=== PATIENT | female | born 1935 | race Caucasian/White ===

== ENCOUNTER 2023-05-25 22:54 | Inpatient (IN) ==
[2023-05-25 23:27] LABS: iSTAT Creatinine 0.7 mg/dl (0.6-1.3); iSTAT Hemoglobin 12.2 g/dl (12.0-16.0); iSTAT Ionized Calcium 1.09 mmol/l (1.12-1.32); iSTAT Potassium 4.1 mmol/L (3.3-5.0)
[2023-05-25 23:43] LABS: iSTAT Arterial Blood Gas HCO3 29 meg/L (19-24); iSTAT Arterial Blood Gas pCO2 56 mmHg (35-46); iSTAT Arterial Blood Gas pH 7.32 (7.35-7.45); iSTAT Arterial Blood Gas pO2 84 mmHg (80-95); iSTAT Carbon Dioxide 31 mmol/L (24-31); iSTAT Hematocrit 34 % (37-47); iSTAT Hemoglobin 11.6 g/dl (12.0-16.0); iSTAT Potassium 4.1 mmol/L (3.3-5.0); iSTAT Sodium 134 mmol/L (135-144)
--- NOTE | 2023-05-25 23:51 | Emergency Department Note ---
Impression & Plan Acute exacerbation of chronic obstructive pulmonary disease, Acute alteration in mental status, [facility] NAME: BOYD APONTE AGE: 87 SEX: F ARRIVES VIA: Ambulance INFORMANT: Patient's daughter and EMS ED PROVIDER(S): Susanna Cabrera DO CHIEF COMPLAINT: Shortness of breath and confusion PLAN: Disposition: Admit to the [facility] Condition: Guarded MEDICAL DECISION MAKING: This is an 87-year-old female patient with a history of COPD who presents to the emergency department with increasing shortness of breath and confusion. According to the patient's family, she has had increasing shortness of breath over the past 3 days. This is typical for her decline(exacerbation) of her COPD. They became more concerned tonight when she was becoming more confused and her O2 saturations were dropping. Patient does take prednisone on a daily basis and normally wears 2 L of O2 by nasal cannula. EMS found the patient h ypoxic on her usual home oxygen. Upon arrival here in the emergency department, she appeared to be in moderate respiratory distress. She was placed on BiPAP. She is tolerating that well at this time. Laboratory studies revealed significant leukocytosis with a white blood cell count of 20.9. A septic protocol was performed. Chest x-ray was concerning for an infiltrate in the right lower lung. Patient was treated with IV Levaquin as she has significant allergies in the past to cephalosporins. Other laboratory studies revealed a stable H&H and glucose of 257. BNP of 138. ABG revealed a pH of 7.32 PCO2 of 56 PO2 of 84 and bicarb of 29. This was consistent with a mild respiratory acidosis. There was slight hypercapnia. Triage Nursing notes reviewed and agree with them. Additional history obtained from the patient's daughter and son-in-law who are at the bedside Vital Signs: reviewed and remarkable for hypoxia and tachycardia Differential diagnosis: COPD exacerbation, congestive heart failure, pneumonia ER treatment provided: Cardiac monitoring Supplemental oxygen BiPAP Twelve-lead EKG IV Levaquin IV Solu-Medrol Diagnostics interpreted by me: ECG: Sinus tachycardia at a rate of 116 with first-degree AV block. There are no previous EKGs for comparison Cardiac Monitoring: Normal sinus rhythm at a rate of 97 Laboratory studies: See below Imaging studies: As per my independent interpretation Portable chest x-ray: Mild pulmonary vascular congestion with opacity in the right lung base HPI: 87/F arrives for evaluation of shortness of breath. Family notes over the past 3 days the patient has had increasing shortness of breath and confusion. This is not unusual for the patient with her exacerbations of COPD. She does have end-stage COPD. The patient normally wears 2 L of O2 by nasal cannula. As the evening wore on, they noted her O2 saturations were dropping to the point of 88%. PAST MEDICAL HISTORY:Dtl-[id number] diabetes, hypercholesterolemia, end- stage COPD, trigeminal neuralgia, osteoporosis PAST SURGICAL HISTORY:Bilateral hip replacements, trigeminal decompression, lumbar spine surgery SOCIAL HISTORY:Patient lives with her daughter and son-in-law HOME MEDICATIONS:See list ALLERGIES:See Below VITALS:See Below PHYSICAL EXAMINATION: HEENT: Head - normocephalic and atraumatic. Pupils are equal, round, and reactive to light. Extraocular eye muscles are intact, and sclera are anicteric. Nose - moist nasal mucosa without discharge. Mouth - moist buccal mucosa. Oropharynx is nonerythematous and there is no tonsillar exudate or ed kamilah noted. Neck: Supple; no JVD or cervical lymphadenopathy appreciated. Heart: Tachycardic rate and regular rhythm there is a normal S1 and S2 with no murmurs, clicks, or gallops appreciated. Lungs: Diminished breath sounds in all lung hoffman with no wheezes noted. Abdomen: Soft, completely nontender, nondistended, with good bowel sounds. There are no palpable pulsatile masses or hepatosplenomegaly. There is no guarding, rigidity, or rebound noted. Extremities: No evidence of cyanosis, clubbing, or edema. There are easily palpable peripheral pulses. Skin: warm and dry with good turgor and no rashes. Neuro: Patient is awake but slightly lethargic. She will follow commands but does not quickly answer questions. She does seem confused. She is moving all 4 extremities. There are no specific focal findings. ED COURSE: Times/Reassessments: 2310 patient was evaluated in room B3. A complete history and physical was performed. The patient was placed on BiPAP when she arrived here in the emergency department which has kept her O2 saturations stable. A portable chest x-ray was performed. Laboratory studies were drawn as above. An order was placed for continuous cardiac monitoring. The patient was in a normal sinus rhythm at a rate of 97. Patient was given a dose of IV Solu-Medrol. There was concern on the x-ray of an opacity in the right lung base. The patient was given a dose of IV Levaquin. I discussed the case with the [facility] Hospitalist and they will evaluate for further management. Susanna Cabrera DO Past Med/Surg History Social History Smoking Status: Former smoker Do You Dip or Chew Tobacco: No; Hx Alcohol Use: No Hx Substance Use: No Preferred Language: Amharic Communication Ability: Unable Rf Test Engineer Required: No Beliefs That Will Affect Care: None Current Living Situation: Family Feels Safe at Home: Yes Assistive Devices: None Allergies Allergies Allergy/AdvReac Type Severity Reaction Status Date / Time cefuroxime [From Ceftin] Allergy Hives Verified 05/26/23 00:54 Home Meds Home Medications Medication Instructions Recorded Confirmed albuterol sulfate 2.5 mg/3 mL 2.5 mg inhalation Q4H PRN 05/26/23 05/26/23 (0.083 %) solution for nebulization Shortness Of Breath Or Wheezing amlodipine 10 mg tablet 10 mg PO QAM 05/26/23 05/26/23 cholecalciferol (vitamin D3) 25 25 mcg PO QAM 05/26/23 05/26/23 mcg (1,000 unit) tablet (Vitamin D3) clopidogrel 75 mg tablet 75 mg PO HS 05/26/23 05/26/23 fentanyl 12 mcg/hr transdermal 12 mcg transdermal [id number] 05/26/23 05/26/23 patch metformin 500 mg tablet 500 mg PO BID 05/26/23 05/26/23 oxcarbazepine 150 mg tablet 300 mg PO BID 05/26/23 05/26/23 prednisone 5 mg tablet 5 mg PO QAM 05/26/23 05/26/23 Results & Data (ED) Vital Signs Vital Signs - 24 hr 05/25/23 23:07 05/25/23 23:43 05/25/23 23:01 Temperature 37.1 C Temperature Source Axillary Pulse Rate 116 H 115 H 124 H Pulse Rate [Apical] Respiratory Rate 35 H 30 H Respiratory Effort / Characteristics Accessory Muscle Use Short of Breath Respiratory Depth Deep Respiratory Pattern Tachypnea Blood Pressure 141/105 H Blood Pressure [Left Arm] Blood Pressure Mean 117 Blood Pressure Mean [Left Arm] Pulse Oximetry 98 99 Oxygen Delivery Method Non-rebreather Oxygen Flow Rate 15 Fraction of Inspired Oxygen 30 Sepsis Recent Fever Within 48 Hours No Sepsis New/Unexplained Change in Mental Status No Sepsis Action Taken by Nursing No Action Required Oxygen Flow Rate - Titration Pulse Oximetry Post Tiitration 05/26/23 00:28 05/26/23 00:30 05/25/23 23:00 Temperature Temperature Source Pulse Rate Pulse Rate [Apical] 102 H Respiratory Rate 20 Respiratory Effort / Characteristics Respiratory Depth Respiratory Pattern Blood Pressure Blood Pressure [Left Arm] 145/67 H Blood Pressure Mean Blood Pressure Mean [Left Arm] 93 Pulse Oximetry 97 66 L Oxygen Delivery Method BiPAP BiPAP Non-rebreather Oxygen Flow Rate 0 Fraction of Inspired Oxygen Sepsis Recent Fever Within 48 Hours Sepsis New/Unexplained Change in Mental Status Sepsis Action Taken by Nursing Oxygen Flow Rate - Titration 15 Pulse Oximetry Post Tiitration 99 05/26/23 00:53 05/26/23 01:00 05/26/23 02:01 Temperature Temperature Source Pulse Rate 96 H 84 Pulse Rate [Apical] 97 H Respiratory Rate 20 20 26 H Respiratory Effort / Characteristics Spontaneous Accessory Muscle Use Respiratory Depth Respiratory Pattern Blood Pressure Blood Pressure [Left Arm] 137/73 Blood Pressure Mean Blood Pressure Mean [Left Arm] 94 Pulse Oximetry 96 96 95 Oxygen Delivery Method BiPAP BiPAP Oxygen Flow Rate Fraction of Inspired Oxygen 25 Sepsis Recent Fever Within 48 Hours Sepsis New/Unexplained Change in Mental Status Sepsis Action Taken by Nursing Oxygen Flow Rate - Titration Pulse Oximetry Post Tiitration 05/26/23 03:14 05/26/23 03:00 05/26/23 01:21 Temperature Temperature Source Pulse Rate 69 Pulse Rate [Apical] 80 Respiratory Rate 16 Respiratory Effort / Characteristics Short of Breath Respiratory Depth Respiratory Pattern Blood Pressure Blood Pressure [Left Arm] 128/72 Blood Pressure Mean Blood Pressure Mean [Left Arm] 90 Pulse Oximetry 96 Oxygen Delivery Method BiPAP BiPAP Oxygen Flow Rate Fraction of Inspired Oxygen Sepsis Recent Fever Within 48 Hours Sepsis New/Unexplained Change in Mental Status Sepsis Action Taken by Nursing Oxygen Flow Rate - Titration Pulse Oximetry Post Tiitration Laboratory Data 05/25/23 23:09 05/25/23 23:09 Lab Results 05/25/23 05/25/23 05/25/23 Range/Units 23:09 23:09 23:09 WBC 20.95 H (4.8-10.8) K/ul RBC 4.02 L (4.20-5.40) M/uL Hgb 11.7 L (12.0-16.0) g/dl POC Hgb (12.0-16.0) g/dl Hct 37.5 (37.0-47.0) % POC Hct (37-47) % MCV 93.3 (80.0-100.0) fL MCH 29.1 (25.0-34.0) pg MCHC 31.2 L (32.0-36.0) g/dL RDW Std Deviation 50.6 H (36.4-46.3) fL RDW Coeff of Bernarda 14.8 H (11.5-14.5) % Plt Count 284 (130-400) K/uL MPV 10.8 (9.4-12.4) fL Immature Gran % (Auto) 0.5 % Neut % (Auto) 73.9 % Lymph % (Auto) 15.7 % Terry % (Auto) 9.6 % Eos % (Auto) 0.0 % Baso % (Auto) 0.3 % Neut # (Auto) 15.48 H (1.40-6.50) K/uL Lymph # (Auto) 3.29 (1.2-3.4) K/uL Terry # (Auto) 2.01 H (0.11-0.59) K/uL Eos # (Auto) 0.01 (0-0.50) K/uL Baso # (Auto) 0.06 (0-0.2) K/uL Immature Gran # (Auto) 0.10 (0.01-0.20) K/uL POC pH (7.35-7.45) POC pCO2 (35-46) mmHg POC pO2 (80-95) mmHg POC HCO3 (19-24) nisreen/L POC Base Excess (-9-1.8) nisreen/L POC ABG O2 Sat (90-95) % POC Sodium (135-144) mmol/L Sodium 135 L (136-145) mmol/L POC Potassium (3.3-5.0) mmol/L Potassium 4.0 (3.5-5.1) mmol/L POC Chloride (101-112) mmol/L Chloride 99 (98-107) mmol/L Carbon Dioxide 29 (21-32) mmol/L POC Total CO2 (24-31) mmol/L Anion Gap 7 (3-11) POC Anion Gap (16-25) mmol/L POC BUN (7-18) mg/dl BUN 26 H (6-23) mg/dl Creatinine 0.78 (0.6-1.2) mg/dl POC Creatinine (0.6-1.3) mg/dl Est Cr Clr Drug Dosing Not Reportable Est GFR ( Amer) 80.3 ml/min Est GFR (Non-Af Amer) 69.3 ml/min BUN/Creatinine Ratio 33.3 H (10-20) Glucose 257 H (70-99(Fasting)) mg/dl POC Glucose (other) (70-99) mg/dl Lactate (0.4-2.0) mmol/L Calcium 9.9 (8.6-10.3) mg/dl POC Ioniz Calcium Zuleima (1.12-1.32) mmol/l Total Bilirubin 0.7 (0.2-1.0) mg/dl AST 22 (13-39) U/L ALT 29 (7-52) U/L Alkaline Phosphatase 136 H (34-104) U/L Troponin I High Sens 29.0 H (0-14) pg/ml B-Natriuretic Peptide 138 H (0-100) pg/ml Total Protein 7.3 (6.0-8.3) gm/dl Albumin 4.1 (3.4-5.0) gm/dl Globulin 3.2 (2.5-4.0) gm/dl Albumin/Globulin Ratio 1.3 (0.9-2) Procalcitonin (0-0.5) ng/ml Urine Color Urine Appearance (Clear) Urine pH (4.5-7.5) Ur Specific Tomball (1.000-1.030) Urine Protein (Negative) Urine Glucose (UA) (Negative) Urine Ketones (Negative) Urine Blood (Negative) Urine Nitrite (Negative) Urine Bilirubin (Negative) Urine Urobilinogen (Negative) Ur Leukocyte Esterase (Negative) Urine WBC (Auto) (0-5) /hpf Urine RBC (Auto) (0-4) /hpf U Hyaline Cast (Auto) (0-5) /lpf U Epithel Cells (Auto) (0-5) /lpf Urine Bacteria (Auto) (Negative) Urine Yeast SARS-CoV-2, RNA, NAAT (NEGATIVE) 05/25/23 05/25/23 05/25/23 Range/Units 23:09 23:14 23:28 WBC (4.8-10.8) K/ul RBC (4.20-5.40) M/uL Hgb (12.0-16.0) g/dl POC Hgb 12.2 11.6 L (12.0-16.0) g/dl Hct (37.0-47.0) % POC Hct 36 L 34 L (37-47) % MCV (80.0-100.0) fL MCH (25.0-34.0) pg MCHC (32.0-36.0) g/dL RDW Std Deviation (36.4-46.3) fL RDW Coeff of Bernarda (11.5-14.5) % Plt Count (130-400) K/uL MPV (9.4-12.4) fL Immature Gran % (Auto) % Neut % (Auto) % Lymph % (Auto) % Terry % (Auto) % Eos % (Auto) % Baso % (Auto) % Neut # (Auto) (1.40-6.50) K/uL Lymph # (Auto) (1.2-3.4) K/uL Terry # (Auto) (0.11-0.59) K/uL Eos # (Auto) (0-0.50) K/uL Baso # (Auto) (0-0.2) K/uL Immature Gran # (Auto) (0.01-0.20) K/uL POC pH 7.32 L (7.35-7.45) POC pCO2 56 H (35-46) mmHg POC pO2 84 (80-95) mmHg POC HCO3 29 H (19-24) nisreen/L POC Base Excess 3.0 H (-9-1.8) nisreen/L POC ABG O2 Sat 95.0 (90-95) % POC Sodium 134 L 134 L (135-144) mmol/L Sodium (136-145) mmol/L POC Potassium 4.1 4.1 (3.3-5.0) mmol/L Potassium (3.5-5.1) mmol/L POC Chloride 100 L (101-112) mmol/L Chloride (98-107) mmol/L Carbon Dioxide (21-32) mmol/L POC Total CO2 29 31 (24-31) mmol/L Anion Gap (3-11) POC Anion Gap 10.0 L (16-25) mmol/L POC BUN 26 H (7-18) mg/dl BUN (6-23) mg/dl Creatinine (0.6-1.2) mg/dl POC Creatinine 0.7 (0.6-1.3) mg/dl Est Cr Clr Drug Dosing Est GFR ( Amer) ml/min Est GFR (Non-Af Amer) ml/min BUN/Creatinine Ratio (10-20) Glucose (70-99(Fasting)) mg/dl POC Glucose (other) 263 H (70-99) mg/dl Lactate (0.4-2.0) mmol/L Calcium (8.6-10.3) mg/dl POC Ioniz Calcium Zuleima 1.09 L (1.12-1.32) mmol/l Total Bilirubin (0.2-1.0) mg/dl AST (13-39) U/L ALT (7-52) U/L Alkaline Phosphatase (34-104) U/L Troponin I High Sens (0-14) pg/ml B-Natriuretic Peptide (0-100) pg/ml Total Protein (6.0-8.3) gm/dl Albumin (3.4-5.0) gm/dl Globulin (2.5-4.0) gm/dl Albumin/Globulin Ratio (0.9-2) Procalcitonin 0.16 (0-0.5) ng/ml Urine Color Urine Appearance (Clear) Urine pH (4.5-7.5) Ur Specific Tomball (1.000-1.030) Urine Protein (Negative) Urine Glucose (UA) (Negative) Urine Ketones (Negative) Urine Blood (Negative) Urine Nitrite (Negative) Urine Bilirubin (Negative) Urine Urobilinogen (Negative) Ur Leukocyte Esterase (Negative) Urine WBC (Auto) (0-5) /hpf Urine RBC (Auto) (0-4) /hpf U Hyaline Cast (Auto) (0-5) /lpf U Epithel Cells (Auto) (0-5) /lpf Urine Bacteria (Auto) (Negative) Urine Yeast SARS-CoV-2, RNA, NAAT (NEGATIVE) 05/26/23 05/26/23 05/26/23 Range/Units 00:57 01:00 01:00 WBC (4.8-10.8) K/ul RBC (4.20-5.40) M/uL Hgb (12.0-16.0) g/dl POC Hgb (12.0-16.0) g/dl Hct (37.0-47.0) % POC Hct (37-47) % MCV (80.0-100.0) fL MCH (25.0-34.0) pg MCHC (32.0-36.0) g/dL RDW Std Deviation (36.4-46.3) fL RDW Coeff of Bernarda (11.5-14.5) % Plt Count (130-400) K/uL MPV (9.4-12.4) fL Immature Gran % (Auto) % Neut % (Auto) % Lymph % (Auto) % Terry % (Auto) % Eos % (Auto) % Baso % (Auto) % Neut # (Auto) (1.40-6.50) K/uL Lymph # (Auto) (1.2-3.4) K/uL Terry # (Auto) (0.11-0.59) K/uL Eos # (Auto) (0-0.50) K/uL Baso # (Auto) (0-0.2) K/uL Immature Gran # (Auto) (0.01-0.20) K/uL POC pH (7.35-7.45) POC pCO2 (35-46) mmHg POC pO2 (80-95) mmHg POC HCO3 (19-24) nisreen/L POC Base Excess (-9-1.8) nisreen/L POC ABG O2 Sat (90-95) % POC Sodium (135-144) mmol/L Sodium (136-145) mmol/L POC Potassium (3.3-5.0) mmol/L Potassium (3.5-5.1) mmol/L POC Chloride (101-112) mmol/L Chloride (98-107) mmol/L Carbon Dioxide (21-32) mmol/L POC Total CO2 (24-31) mmol/L Anion Gap (3-11) POC Anion Gap (16-25) mmol/L POC BUN (7-18) mg/dl BUN (6-23) mg/dl Creatinine (0.6-1.2) mg/dl POC Creatinine (0.6-1.3) mg/dl Est Cr Clr Drug Dosing Est GFR ( Amer) ml/min Est GFR (Non-Af Amer) ml/min BUN/Creatinine Ratio (10-20) Glucose (70-99(Fasting)) mg/dl POC Glucose (other) (70-99) mg/dl Lactate 1.4 (0.4-2.0) mmol/L Calcium (8.6-10.3) mg/dl POC Ioniz Calcium Zuleima (1.12-1.32) mmol/l Total Bilirubin (0.2-1.0) mg/dl AST (13-39) U/L ALT (7-52) U/L Alkaline Phosphatase (34-104) U/L Troponin I High Sens (0-14) pg/ml B-Natriuretic Peptide (0-100) pg/ml Total Protein (6.0-8.3) gm/dl Albumin (3.4-5.0) gm/dl Globulin (2.5-4.0) gm/dl Albumin/Globulin Ratio (0.9-2) Procalcitonin (0-0.5) ng/ml Urine Color Yellow Urine Appearance Cloudy A (Clear) Urine pH 5.5 (4.5-7.5) Ur Specific Tomball 1.022 (1.000-1.030) Urine Protein 2+ H (Negative) Urine Glucose (UA) 1+ H (Negative) Urine Ketones Negative (Negative) Urine Blood Negative (Negative) Urine Nitrite Negative (Negative) Urine Bilirubin Negative (Negative) Urine Urobilinogen Negative (Negative) Ur Leukocyte Esterase Negative (Negative) Urine WBC (Auto) 1-5 (0-5) /hpf Urine RBC (Auto) 0-4 (0-4) /hpf U Hyaline Cast (Auto) 1-5 (0-5) /lpf U Epithel Cells (Auto) 20-30 H (0-5) /lpf Urine Bacteria (Auto) Negative (Negative) Urine Yeast Not Reportable SARS-CoV-2, RNA, NAAT NEGATIVE (NEGATIVE) 05/26/23 Range/Units 03:10 WBC (4.8-10.8) K/ul RBC (4.20-5.40) M/uL Hgb (12.0-16.0) g/dl POC Hgb (12.0-16.0) g/dl Hct (37.0-47.0) % POC Hct (37-47) % MCV (80.0-100.0) fL MCH (25.0-34.0) pg MCHC (32.0-36.0) g/dL RDW Std Deviation (36.4-46.3) fL RDW Coeff of Bernarda (11.5-14.5) % Plt Count (130-400) K/uL MPV (9.4-12.4) fL Immature Gran % (Auto) % Neut % (Auto) % Lymph % (Auto) % Terry % (Auto) % Eos % (Auto) % Baso % (Auto) % Neut # (Auto) (1.40-6.50) K/uL Lymph # (Auto) (1.2-3.4) K/uL Terry # (Auto) (0.11-0.59) K/uL Eos # (Auto) (0-0.50) K/uL Baso # (Auto) (0-0.2) K/uL Immature Gran # (Auto) (0.01-0.20) K/uL POC pH (7.35-7.45) POC pCO2 (35-46) mmHg POC pO2 (80-95) mmHg POC HCO3 (19-24) nisreen/L POC Base Excess (-9-1.8) nisreen/L POC ABG O2 Sat (90-95) % POC Sodium (135-144) mmol/L Sodium (136-145) mmol/L POC Potassium (3.3-5.0) mmol/L Potassium (3.5-5.1) mmol/L POC Chloride (101-112) mmol/L Chloride (98-107) mmol/L Carbon Dioxide (21-32) mmol/L POC Total CO2 (24-31) mmol/L Anion Gap (3-11) POC Anion Gap (16-25) mmol/L POC BUN (7-18) mg/dl BUN (6-23) mg/dl Creatinine (0.6-1.2) mg/dl POC Creatinine (0.6-1.3) mg/dl Est Cr Clr Drug Dosing Est GFR ( Amer) ml/min Est GFR (Non-Af Amer) ml/min BUN/Creatinine Ratio (10-20) Glucose (70-99(Fasting)) mg/dl POC Glucose (other) (70-99) mg/dl Lactate (0.4-2.0) mmol/L Calcium (8.6-10.3) mg/dl POC Ioniz Calcium Zuleima (1.12-1.32) mmol/l Total Bilirubin (0.2-1.0) mg/dl AST (13-39) U/L ALT (7-52) U/L Alkaline Phosphatase (34-104) U/L Troponin I High Sens 41.0 H D (0-14) pg/ml B-Natriuretic Peptide (0-100) pg/ml Total Protein (6.0-8.3) gm/dl Albumin (3.4-5.0) gm/dl Globulin (2.5-4.0) gm/dl Albumin/Globulin Ratio (0.9-2) Procalcitonin (0-0.5) ng/ml Urine Color Urine Appearance (Clear) Urine pH (4.5-7.5) Ur Specific Tomball (1.000-1.030) Urine Protein (Negative) Urine Glucose (UA) (Negative) Urine Ketones (Negative) Urine Blood (Negative) Urine Nitrite (Negative) Urine Bilirubin (Negative) Urine Urobilinogen (Negative) Ur Leukocyte Esterase (Negative) Urine WBC (Auto) (0-5) /hpf Urine RBC (Auto) (0-4) /hpf U Hyaline Cast (Auto) (0-5) /lpf U Epithel Cells (Auto) (0-5) /lpf Urine Bacteria (Auto) (Negative) Urine Yeast SARS-CoV-2, RNA, NAAT (NEGATIVE) Administered Medications Discontinued Medications Levofloxacin/Dextrose (Levaquin/D5w) 750 mg in 150 mls @ 100 mls/hr IV NOW STA Stop: 05/26/23 03:06 Last Infusion: 05/26/23 03:57 Dose: 0 mls/hr Documented By: Admin: 05/26/23 01:44 Dose: 100 mls/hr Documented By: JAZMIN Methylprednisolone (Methylprednisolone 125 Mg/2 Ml Vial) 125 mg IV NOW STA Stop: 05/26/23 01:18 Last Admin: 05/26/23 01:28 Dose: 125 mg Documented By: JAZMIN Discharge Plan Visit Data Chief Complaint: Shortness of Breath/Dyspnea Stated Complaint: SHORTNESS OF BREATH ED Provider: Susanna Cabrera Discharge Problem: Acute exacerbation of chronic obstructive pulmonary disease, Acute alteration in mental status, Hypoxia Patient Disposition: Admitted As Inpatient Discharge Instructions Interventions: ED Discharge Assessment Last Done: 05/26/23 04:27
[2023-05-25 23:56] LABS: Basophils # (auto) 0.06 K/uL (0-0.2); Basophils % (auto) 0.3 %; Eosinophils # (auto) 0.01 K/uL (0-0.50); Hematocrit (blood only) 37.5 % (37.0-47.0); Hemoglobin 11.7 g/dl (12.0-16.0); Immature Granulocytes % (auto) 0.5 %; Lymphocytes # (auto) 3.29 K/uL (1.2-3.4); Lymphocytes % (auto) 15.7 %; Mean Corpuscular Hemoglobin 29.1 pg (25.0-34.0); Mean Corpuscular Hgb Conc 31.2 g/dL (32.0-36.0); Mean Corpuscular Volume 93.3 fL (80.0-100.0); Mean Platelet Volume 10.8 fL (9.4-12.4); Monocytes # (auto) 2.01 K/uL (0.11-0.59); Monocytes % (auto) 9.6 %; Neutrophils # (auto) 15.48 K/uL (1.40-6.50); Neutrophils % (auto) 73.9 %; Platelet Count 284 K/uL (130-400); RDW Coefficient of Variation 14.8 % (11.5-14.5); RDW Standard Deviation 50.6 fL (36.4-46.3); Red Blood Count 4.02 M/uL (4.20-5.40); White Blood Count 20.95 K/ul (4.8-10.8)
[2023-05-25 23:59] LABS: Alanine Aminotransferase 29 U/L (7-52); Albumin Globulin Ratio 1.3 (0.9-2); Albumin Level 4.1 gm/dl (3.4-5.0); Alkaline Phosphatase 136 U/L (34-104); Anion Gap 7 (3-11); Aspartate Aminotransferase 22 U/L (13-39); BUN Creatinine Ratio 33.3 (10-20); Bilirubin,Total 0.7 mg/dl (0.2-1.0); Blood Urea Nitrogen 26 mg/dl (6-23); Calcium 9.9 mg/dl (8.6-10.3); Carbon Dioxide 29 mmol/L (21-32); Chloride 99 mmol/L (98-107); Est GFR (African American) 80.3 ml/min; Est GFR (Non-African American) 69.3 ml/min; Globulin 3.2 gm/dl (2.5-4.0); Glucose 257 mg/dl (70-99(Fasting)); Sodium 135 mmol/L (136-145); Total Protein 7.3 gm/dl (6.0-8.3)
[2023-05-26] MEDS ORDERED: methylPREDNISolone 125 MG/2 ML VIAL IV STA (01:17)
[2023-05-26 01:36] LABS: Appearance Urine Cloudy (Clear); Bacteria Urine Automated Negative (Negative); Bilirubin Urine Negative (Negative); Blood Urine Negative (Negative); Color Urine Yellow; Epithelial Cell Urine Auto 20-30 /lpf (0-5); Glucose Urine UA 1+ (Negative); Ketones Urine Negative (Negative); Leukocyte Esterase Urine Negative (Negative); Nitrite Urine Negative (Negative); Protein Urine 2+ (Negative); RBC Urine Automated 0-4 /hpf (0-4); Specific Gravity Urine 1.022 (1.000-1.030); Urobilinogen Urine Negative (Negative); pH Urine 5.5 (4.5-7.5)
[2023-05-26] MEDS ORDERED: levoFLOXacin/D5W 750 MG/150 ML BAG IV STA (01:37)
--- NOTE | 2023-05-26 03:28 | History & Physical Report ---
Date of Service May 26, 2023 Assessment & Plan (1) Acute exacerbation of chronic obstructive pulmonary disease (COPD): Plan: 87 yo female with PMHx CVA, HTN, dementia, and end stage COPD presents with shortness of breath and confusion. #Acute on chronic COPD in exacerbation #End stage COPD -Presented with 3 days sob and confusion. Has 1-2 exacerbations per year. Confusion likely due to hypercapnia or possible pneumonia as below. At home on 2-2.5L continuous oxygen, prednisone 5mg daily, and albuterol prn. -IV methylprednisone 125mg given in ED. Defer further steroid burst/taper to day team. -started on azithromycin x5 days which can also cover for atypical pneumonia as below -duoneb mray, incentive spirometer, flutter valve, mucinex -placed on bipap overnight #Pneumonia #Sepsis -questionable pneumonia with ?RLL infiltrate on CXR (official read pending). +leukocytosis. Lactate 1.4 Procal neg. Did meet SIRS criteria (leukocytosis, tachycardia) with suspected pulmonary source. UA appears noninfectious. Blood cx pending. -Levaquin given in ED which will provide 24 hours of typical coverage. Defer further antibiotic tx for typical pneumonia to day team. However, will continue azithromycin for COPD and atypical coverage. -MRSA nares pending #Elevated troponin -trop 29 on admission. Suspect demand. EKG without ischemic changes. Trend. #HTN -cont. amlodipine #DM2 -hold home metformin -started on SSI #Trigeminal Neuralgia -cont. oxcarbazepine #H/o CVA -cont. plavix -statin previously d/c'd by pcp due to side affects DVT ppx: lovenox FEN/GI: DM2, HH Code Status: DNI/DNR Dispo: PCU (2) Pneumonia: (3) History of CVA (cerebrovascular accident): (4) Dementia: (5) Hypertension: (6) Trigeminal neuralgia: History of Present Illness Chief Complaint: shortness of breath, confusion Primary Care Provider: Kendell Harmon 87 yo female with PMHx CVA, HTN, dementia, and end stage COPD presents with shortness of breath and confusion. When seen at bedside patient was on BiPAP and arrived confused. History noted from her daughter and son-in-law who are present. Over the past few days patient has had progressive worsening shortness of breath, generalized weakness, and confusion. This is her first time at [facility] as she follows with [facility]armole[facility]. She does have about 1-2 episodes of COPD exacerbation a year. At home she is on 2-2.5 L of continuous oxygen supplementation. Allergies Allergy/AdvReac Type Severity Reaction Status Date / Time cefuroxime [From Ceftin] Allergy Hives Verified 05/26/23 00:54 Home Medications Medication Instructions Recorded Confirmed Type albuterol sulfate 2.5 mg/3 mL 2.5 mg inhalation Q4H PRN 05/26/23 05/26/23 History (0.083 %) solution for nebulization Shortness Of Breath Or Wheezing amlodipine 10 mg tablet 10 mg PO QAM 05/26/23 05/26/23 History cholecalciferol (vitamin D3) 25 25 mcg PO QAM 05/26/23 05/26/23 History mcg (1,000 unit) tablet (Vitamin D3) clopidogrel 75 mg tablet 75 mg PO HS 05/26/23 05/26/23 History fentanyl 12 mcg/hr transdermal 12 mcg transdermal [id number] 05/26/23 05/26/23 History patch metformin 500 mg tablet 500 mg PO BID 05/26/23 05/26/23 History oxcarbazepine 150 mg tablet 300 mg PO BID 05/26/23 05/26/23 History prednisone 5 mg tablet 5 mg PO QAM 05/26/23 05/26/23 History Past Med/Surg History Social History Smoking Status: Former smoker Do You Dip or Chew Tobacco: No; Hx Alcohol Use: No Hx Substance Use: No Preferred Language: [place]ian Communication Ability: Impaired [place] [employer] Required: No Beliefs That Will Affect Care: None Current Living Situation: Family Feels Safe at Home: Yes Assistive Devices: Walker and Wheelchair Review of Systems Review of Systems: Unobtainable due to cognitive status Physical Exam Physical Exam: Constitutional: iin no acute distress. Alert, arousable. Vitals as above. HEENT: No scleral injection or discharge.Moist mucous membranes. Neck: Supple without lymphadenopathy or thyromegaly. Trachea midline. Lungs: Faint diffuse expiratory wheezing. No rales/rhonchi. Good air flow. Cardiac: Regular rate and rhythm. No murmurs. No extremity edema. 2+ distal peripheral pulses. Abdomen: Bowel sounds present. Soft, nontender, and nondistended.No guarding. No hepatosplenomegaly. MSK: No cyanosis or clubbing. Skin: No abnormal rashes, warm, dry. Neurologic: not assessed due to current state Results & Data Results & Data Vital Signs (Past 12 Hours) Vital Signs Temp Pulse Pulse Resp BP BP Pulse Ox 05/26/23 03:14 69 05/26/23 02:01 84 26 H 95 05/26/23 01:00 97 H 20 137/73 96 05/26/23 00:53 96 H 20 96 05/25/23 23:00 66 L 05/26/23 00:30 05/26/23 00:28 102 H 20 145/67 H 97 05/25/23 23:01 37.1 C 124 H 30 H 141/105 H 99 05/25/23 23:43 115 H 35 H 98 05/25/23 23:07 116 H O2 Del Method O2 Flow Rate FiO2 05/26/23 03:14 05/26/23 02:01 25 05/26/23 01:00 BiPAP 05/26/23 00:53 BiPAP 05/25/23 23:00 Non-rebreather 0 05/26/23 00:30 BiPAP 05/26/23 00:28 BiPAP 05/25/23 23:01 Non-rebreather 15 05/25/23 23:43 30 05/25/23 23:07 Diagnostic Findings Laboratory Results WBC 20.95 K/ul (4.8-10.8) H 05/25/23 23:09 RBC 4.02 M/uL (4.20-5.40) L 05/25/23 23:09 Hgb 11.7 g/dl (12.0-16.0) L 05/25/23 23:09 POC Hgb 11.6 g/dl (12.0-16.0) L 05/25/23 23:28 Hct 37.5 % (37.0-47.0) 05/25/23 23:09 POC Hct 34 % (37-47) L 05/25/23 23:28 MCV 93.3 fL (80.0-100.0) 05/25/23 23:09 MCH 29.1 pg (25.0-34.0) 05/25/23 23:09 MCHC 31.2 g/dL (32.0-36.0) L 05/25/23 23:09 RDW Std Deviation 50.6 fL (36.4-46.3) H 05/25/23 23:09 RDW Coeff of Bernarda 14.8 % (11.5-14.5) H 05/25/23 23:09 Plt Count 284 K/uL (130-400) 05/25/23 23:09 MPV 10.8 fL (9.4-12.4) 05/25/23 23:09 Immature Gran % (Auto) 0.5 % 05/25/23 23:09 Neut % (Auto) 73.9 % 05/25/23 23:09 Lymph % (Auto) 15.7 % 05/25/23 23:09 Dawes % (Auto) 9.6 % 05/25/23 23:09 Eos % (Auto) 0.0 % 05/25/23 23:09 Baso % (Auto) 0.3 % 05/25/23 23:09 Neut # (Auto) 15.48 K/uL (1.40-6.50) H 05/25/23 23:09 Lymph # (Auto) 3.29 K/uL (1.2-3.4) 05/25/23 23:09 Dawes # (Auto) 2.01 K/uL (0.11-0.59) H 05/25/23 23:09 Eos # (Auto) 0.01 K/uL (0-0.50) 05/25/23 23:09 Baso # (Auto) 0.06 K/uL (0-0.2) 05/25/23 23:09 Immature Gran # (Auto) 0.10 K/uL (0.01-0.20) 05/25/23 23:09 POC pH 7.32 (7.35-7.45) L 05/25/23 23: POC pCO2 56 mmHg (35-46) H 05/25/23 23: POC pO2 84 mmHg (80-95) 05/25/23 23: POC HCO3 29 nisreen/L (19-24) H 05/25/23 23: POC Total CO2 31 mmol/L (24-31) 05/25/23 23: POC Base Excess 3.0 nisreen/L (-9-1.8) H 05/25/23 23:28 POC ABG O2 Sat 95.0 % (90-95) 05/25/23 23:28 POC Sodium 134 mmol/L (135-144) L 05/25/23 23:28 Sodium 135 mmol/L (136-145) L 05/25/23 23:09 POC Potassium 4.1 mmol/L (3.3-5.0) 05/25/23 23:28 Potassium 4.0 mmol/L (3.5-5.1) 05/25/23 23:09 POC Chloride 100 mmol/L (101-112) L 05/25/23 23:14 Chloride 99 mmol/L (98-107) 05/25/23 23:09 Carbon Dioxide 29 mmol/L (21-32) 05/25/23 23:09 POC Total CO2 29 mmol/L (24-31) 05/25/23 23:14 Anion Gap 7 (3-11) 05/25/23 23:09 POC Anion Gap 10.0 mmol/L (16-25) L 05/25/23 23:14 POC BUN 26 mg/dl (7-18) H 05/25/23 23:14 BUN 26 mg/dl (6-23) H 05/25/23 23:09 Creatinine 0.78 mg/dl (0.6-1.2) 05/25/23 23:09 POC Creatinine 0.7 mg/dl (0.6-1.3) 05/25/23 23:14 Est Cr Clr Drug Dosing Not Reportable 05/25/23 23:09 Est GFR ( Amer) 80.3 ml/min 05/25/23 23:09 Est GFR (Non-Af Amer) 69.3 ml/min 05/25/23 23:09 BUN/Creatinine Ratio 33.3 (10-20) H 05/25/23 23:09 Glucose 257 mg/dl (70-99(Fasting)) H 05/25/23 23:09 POC Glucose (other) 263 mg/dl (70-99) H 05/25/23 23:14 Lactate 1.4 mmol/L (0.4-2.0) 05/26/23 00:57 Calcium 9.9 mg/dl (8.6-10.3) 05/25/23 23:09 POC Ioniz Calcium [place] 1.09 mmol/l (1.12-1.32) L 05/25/23 23:14 Total Bilirubin 0.7 mg/dl (0.2-1.0) 05/25/23 23:09 AST 22 U/L (13-39) 05/25/23 23:09 ALT 29 U/L (7-52) 05/25/23 23:09 Alkaline Phosphatase 136 U/L (34-104) H 05/25/23 23:09 Troponin I High Sens 29.0 pg/ml (0-14) H 05/25/23 23:09 B-Natriuretic Peptide 138 pg/ml (0-100) H 05/25/23 23:09 Total Protein 7.3 gm/dl (6.0-8.3) 05/25/23 23:09 Albumin 4.1 gm/dl (3.4-5.0) 05/25/23 23:09 Globulin 3.2 gm/dl (2.5-4.0) 05/25/23 23:09 Albumin/Globulin Ratio 1.3 (0.9-2) 05/25/23 23:09 Procalcitonin 0.16 ng/ml (0-0.5) 05/25/23 23:09 Urine Color Yellow 05/26/23 01:00 Urine Appearance Cloudy (Clear) A 05/26/23 01:00 Urine pH 5.5 (4.5-7.5) 05/26/23 01:00 Ur Specific [place] 1.022 (1.000-1.030) 05/26/23 01:00 Urine Protein 2+ (Negative) H 05/26/23 01:00 Urine Glucose (UA) 1+ (Negative) H 05/26/23 01:00 Urine Ketones Negative (Negative) 05/26/23 01:00 Urine Blood Negative (Negative) 05/26/23 01:00 Urine Nitrite Negative (Negative) 05/26/23 01:00 Urine Bilirubin Negative (Negative) 05/26/23 01:00 Urine Urobilinogen Negative (Negative) 05/26/23 01:00 Ur Leukocyte Esterase Negative (Negative) 05/26/23 01:00 SARS-CoV-2, RNA, NAAT NEGATIVE (NEGATIVE) 05/26/23 01:00 Code Status & VTE Plan VTE Prophylaxis Plan VTE Prophylaxis will be ordered: Yes Supervising Physician Co-Signing Physician Notes Patient seen and examined in room 455-1, chart reviewed, case discussed with Dr. Cotto and I agree with the assessment and plan as documented above. In brief, patient is an 87yo female with HTN, Dementia and end-stage COPD on 2-2.5L of supplemental O2 at baseline presenting with SOB and confusion. Patient receives the majority of her health care elsewhere. She presents with progressively worsening SOB, weakness and confusion. Hypoxic on arrival to 66%. Mild respiratory acidosis placed on rescue BiPAP in the ER Examined at bedside - patient resting comfortably - BiPAP in place 10/5 30% FiO2 with adequate tidal volumes Somnolent but easily arousable and answering quetions appropriately Skin - intact, no rash HEENT- MMM, neck supple Heart - +S1/S2, regular, no m/r/g Lungs - Diminished breath sounds bilaterally with end-expiratory wheezing Abd - obese, soft, NT/ND Ext - warm, well perfused, no clubbing/cyanosis or edema Labs and images reviewed Assessment/Plan -Admit to PCU -Continue BiPAP -IV steroids -Nebs -Azithromycin -Remainder as above Resident Activity Tracking Resident Involvement: Resident Care Provided Care Provided: Adult Hospital Medicine
[2023-05-26] MEDS ORDERED: GLUCOSE 10 TAB/TUBE PO PRN (05:13)
[2023-05-26] MEDS ORDERED: GLUCAGON FOR INJ 1 MG VIAL SQ PRN (05:13)
[2023-05-26] MEDS ORDERED: GLUCOSE 40% GEL 15 GM TUBE PO PRN (05:13)
[2023-05-26] MEDS ORDERED: DEXTROSE 50% 50 ML SYRINGE IV PRN (05:13)
[2023-05-26] MEDS ORDERED: POLYETHYLENE (MIRALAX) 17 GM PACK PO PRN (05:13)
[2023-05-26] MEDS ORDERED: ACETAMINOPHEN 325 MG TAB PO PRN (05:13)
[2023-05-26] MEDS ORDERED: CARBOHYDRATES FOR HYPOGLYCEMIA PO PRN (05:13)
[2023-05-26] MEDS ORDERED: AZITHROMYCIN 250 MG TAB PO ONE (05:45)
[2023-05-26] MEDS: ENOXAPARIN INJ 40 MG/0.4 ML SYR SQ SCH (06:30)
[2023-05-26] MEDS ORDERED: AZITHROMYCIN 500 MG in DEXTROSE 5% 250 ML IV ONE (06:45)
[2023-05-26] MEDS: ALBUT/IPRATROP 3MG/0.5MG NEB 3 ML VIAL NEB SCH ×4 (07:29→20:42)
--- NOTE | 2023-05-26 07:37 | XRay Report ---
XR chest 1V portable CLINICAL HISTORY: Dyspnea TECHNIQUE: Single frontal radiograph of the chest was obtained. Comparison: None available at the time of this dictation. FINDINGS: No lines and tubes are seen. Calcified aortic knob is seen. Faint bibasilar airspace opacities are se en. Interstitial thickening is seen. No evidence of pleural effusion or pneumothorax. IMPRESSION: Faint bibasilar airspace opacities which may represent atelectasis, pneumonia, and/or aspiration. 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 ACT 112: Negative or not required by law. Electronically signed by: Harsha Gale M.D. 05/26/2023 7:36 AM
[2023-05-26] MEDS: fentaNYL 12 MCG/HR TDSY TD SCH (08:29)
[2023-05-26] MEDS: amLODIPine BESYLATE 5 MG TAB PO SCH (08:31)
[2023-05-26] MEDS: guaiFENesin 600 MG TABCR PO SCH ×2 (08:32→20:16)
[2023-05-26] MEDS: OXcarbazepine 150 MG TABLET PO SCH ×2 (08:32→20:16)
[2023-05-26] MEDS: CHECK fentaNYL PATCH PLACEMENT SCH ×2 (08:33→16:57)
[2023-05-26 08:43] LABS: Hematocrit (blood only) 33.5 % (37.0-47.0); Hemoglobin 10.6 g/dl (12.0-16.0); Mean Corpuscular Hemoglobin 29.2 pg (25.0-34.0); Mean Corpuscular Hgb Conc 31.6 g/dL (32.0-36.0); Mean Corpuscular Volume 92.3 fL (80.0-100.0); Mean Platelet Volume 10.6 fL (9.4-12.4); Platelet Count 214 K/uL (130-400); RDW Coefficient of Variation 14.6 % (11.5-14.5); RDW Standard Deviation 49.7 fL (36.4-46.3); Red Blood Count 3.63 M/uL (4.20-5.40); White Blood Count 11.11 K/ul (4.8-10.8)
--- NOTE | 2023-05-26 08:51 | Electrocardiogram Report ---
Test Reason : Blood Pressure : / mmHG Vent. Rate : 116 BPM Atrial Rate : 116 BPM P-R Int : 232 ms QRS Dur : 098 ms QT Int : 310 ms P-R-T Axes : 000 -70 074 degrees QTc Int : 430 ms Sinus tachycardia with 1st degree A-V block Left anterior fascicular block Old Anterolateral infarct Abnormal ECG No previous ECGs available Confirmed by Gorge Shen ([id number]) on 05/26/2023 8:51:38 AM Referred By: REFERRED SELF Confirmed By:Gorge Shen
[2023-05-26 08:56] LABS: BUN Creatinine Ratio 34.1 (10-20); Calcium 9.3 mg/dl (8.6-10.3); Creatinine Clr Calc Pharmacy 38.2 ml/min; Est GFR (African American) 66.7 ml/min; Est GFR (Non-African American) 57.5 ml/min; Potassium 4.4 mmol/L (3.5-5.1)
[2023-05-26] MEDS ORDERED: levoFLOXacin/D5W 750 MG/150 ML BAG IV SCH (09:00)
[2023-05-26] MEDS ORDERED: PNEUMOCOCCAL POLYSACCHARIDES 25 MCG/0.5 ML VIAL/SYR IM ONE (09:00)
[2023-05-26] MEDS ORDERED: FLUTICASONE/VILANTEROL 200/25MCG 14 PUFFS/INHALER INH SCH (09:00)
[2023-05-26] MEDS: FORMOTEROL 20 MCG/2 ML VIAL NEB SCH ×2 (09:13→20:42)
[2023-05-26 09:14] LABS: Basophils # (auto) 0.01 K/uL (0-0.2); Basophils % (auto) 0.1 %; Immature Granulocytes # (auto) 0.04 K/uL (0.01-0.20); Immature Granulocytes % (auto) 0.4 %; Lymphocytes # (auto) 0.57 K/uL (1.2-3.4); Lymphocytes % (auto) 5.1 %; Monocytes # (auto) 0.25 K/uL (0.11-0.59); Monocytes % (auto) 2.3 %; Neutrophils # (auto) 10.24 K/uL (1.40-6.50); Neutrophils % (auto) 92.1 %
[2023-05-26] MEDS: BUDESONIDE 0.5 MG/2 ML VIAL (PULMICORT) NEB SCH ×2 (09:14→20:42)
[2023-05-26] MEDS: INSULIN ASPART PER UNIT CHARGE SC SCH ×4 (09:33→20:17)
[2023-05-26] MEDS: methylPREDNISolone 40 MG in SYRINGE 0 ML IV SCH ×2 (10:25→18:21)
--- NOTE | 2023-05-26 10:51 | Hospitalist Progress Note ---
Date of Service May 26, 2023 Assessment & Plan (1) Acute on chronic respiratory failure with hypoxia and hypercapnia: Plan: Acute/unstable - high risk - End stage COPD with chronic respiratory failure, wears 2-2.5L at home continuously - Follows with [facility] - ARF with hypercapnia and hypoxia (pH 7.32, pCO2 56, pO2 84) - this was POC ?arterial blood gas, unsure what type of O2 supplementation was being provided at time of collection - pt's baseline uncertain - Required overnight BiPAP therapy, weaned off this AM to room air - Continue supplemental O2 only as able to maintain a goal pulse ox 88-92% (2) Acute exacerbation of chronic obstructive pulmonary disease: Plan: Acute/unstable - moderate risk - Continue Duonebs QIDR and q2 prn - Given 1 dose of Solumedrol in ED only - Add Solumedrol 40mg IV q8 - Chronically on Prednisone 5mg daily - Will transition to oral Prednisone in 24-48 hours and wean back to routine home dose - Stop Breo, order nebulized Budesonide + Formoterol BID (3) Acute alteration in mental status: Plan: Acute/stable - resolved - Suspect metabolic encephalopathy secondary to worsening hypoxia (O2 88% reportedly on her chronic 2L) - Unsure of her baseline mentation given her underlying h/o dementia (4) Pneumonia: Plan: Acute/unstable - moderate risk - Clinically supported by leukocytosis and acute on chronic respiratory failure - CXR with bibasilar airspace opacities - Given Levaquin 750mg IV x1 in ED and appears admitting changed to Zithromax - CBC reviewed, leukocytosis has improved from 20 down to 11 this morning - D/C Zithromax and reorder Levaquin 750mg IV daily - This is preferred over single agent zithromax to provide adequate gram negative + atypical coverage - QTc WNL at 430 - Breathing treatments as above - Continue Mucinex 600mg BID (5) Elevated troponin: Plan: Acute/stable - HS trop elevated at 29 on admit - Serial HS trops ordered, repeat 41 and then back down to 35 this AM - Slight elevation likely represents myocardial demand ischemia d/t acute medical problems - She remains CP free, EKG w/o acute changes (6) Dementia: Plan: Chronic/stable - Currently oriented x2 with unknown baseline - Does not appear to be on any dementia medications (7) Hypertension: Plan: Chronic/stable - Continue Norvasc 10mg daily (8) Type 2 diabetes mellitus: Plan: Chronic/stable - Take Metformin monotherapy at home 500mg BID - Metformin placed on hold, transition to lantus/log regimen - Continue accuchecks AC and HS - Carb consistent diet Plan Continue Lovenox for DVT ppx. AM labs have been ordered. PT/OT eval ordered. Updated patient's daughter, Lilliam, via phone. Above plan of care has been d/w Dr. Rod. Admission and Anticipated Discharge Date Admission Date: May 26, 2023 Supervising Physician Co-Signing Physician Notes The patient was not seen by me. The chart was reviewed. Case discussed with LOR Monet. Agree with assessment and plan Subjective Patient was seen on daily rounds this morning. She is currently resting in bed, on 1.5L of O2 with sats in the mid 90s. She denies chest pain, dyspnea, wheezing or cough. She is oriented x2. No issues reported by nursing staff. Physical Exam Physical Exam: GENERAL: 87 yo well-developed, well-nourished elderly F. Appears chronically ill. AAOx2. NAD. LUNGS: Nonlabored. Decreased air movement. Expiratory wheezes appreciated anteriorly and diminished breath sounds in bases. CARDIOVASCULAR: Regular rate and rhythm. ABDOMEN: Soft, non-tender and non-distended. BS normoactive x 4 quad. EXTREMITIES: Trace edema in RLE, no edema in LLE. Non-tender. Peripheral pulses +2/4. Results & Data Results & Data Vital Signs (Past 12 Hours) Vital Signs Temp Pulse Pulse Pulse Resp BP BP 05/26/23 09:14 89 20 05/26/23 07:30 36.3 C L 86 18 111/80 05/26/23 07:35 80 18 05/26/23 05:25 36.9 C 106 H 16 186/77 H 05/26/23 01:21 05/26/23 04:26 103 H 36 H 05/26/23 03:00 80 16 128/72 05/26/23 03:14 69 05/26/23 02:01 84 26 H 05/26/23 01:00 97 H 20 137/73 05/26/23 00:53 96 H 20 05/25/23 23:00 05/26/23 00:30 05/26/23 00:28 102 H 20 145/67 H 05/25/23 23:01 37.1 C 124 H 30 H 141/105 H 05/25/23 23:43 115 H 35 H 05/25/23 23:07 116 H Pulse Ox O2 Del Method O2 Flow Rate FiO2 05/26/23 09:14 94 Room Air 05/26/23 07:30 99 Nasal Cannula 05/26/23 07:35 99 BiPAP 30 05/26/23 05:25 100 BiPAP 25 05/26/23 01:21 BiPAP 05/26/23 04:26 98 30 05/26/23 03:00 96 BiPAP 05/26/23 03:14 05/26/23 02:01 95 25 05/26/23 01:00 96 BiPAP 05/26/23 00:53 96 BiPAP 05/25/23 23:00 66 L Non-rebreather 0 05/26/23 00:30 BiPAP 05/26/23 00:28 97 BiPAP 05/25/23 23:01 99 Non-rebreather 15 05/25/23 23:43 98 30 05/25/23 23:07 Laboratory Results 05/26/23 08:15 05/26/23 08:15 PG Care Time/CCT Total # of Minutes Spent Total Time Spent with Patient: Total time spent is greater than 50% in coordination of care (as documented) at patient's floor/unit and/or counseling patient: Coding Level of Care Code 35963 SUB INP/OBS CARE 3/50MIN Diagnoses Acute on chronic respiratory failure with hypoxia and hypercapnia J96.21; J9 6.22 Acute exacerbation of chronic obstructive pulmonary disease J44.1 Acute alteration in mental status R41.82 Pneumonia J18.9 Elevated troponin R77.8 Dementia F03.90 Hypertension I10 Type 2 diabetes mellitus E11.9
--- NOTE | 2023-05-26 19:34 | Billing Data ---
Date of Service May 26, 2023 Coding Level of Care Code 61184 INT INP/OBS CARE
[2023-05-27] MEDS: ALBUT/IPRATROP 3MG/0.5MG NEB 3 ML VIAL NEB SCH ×5 (00:04→14:43)
[2023-05-27] MEDS: CHECK fentaNYL PATCH PLACEMENT SCH ×3 (01:11→15:47)
[2023-05-27] MEDS: fentaNYL 12 MCG/HR TDSY TD SCH (01:13)
[2023-05-27] MEDS: methylPREDNISolone 40 MG in SYRINGE 0 ML IV SCH ×3 (01:15→17:00)
[2023-05-27 06:27] LABS: Hematocrit (blood only) 33.9 % (37.0-47.0); Hemoglobin 10.8 g/dl (12.0-16.0); Mean Corpuscular Hemoglobin 29.1 pg (25.0-34.0); Mean Corpuscular Hgb Conc 31.9 g/dL (32.0-36.0); Mean Corpuscular Volume 91.4 fL (80.0-100.0); Mean Platelet Volume 10.7 fL (9.4-12.4); Platelet Count 244 K/uL (130-400); RDW Coefficient of Variation 14.2 % (11.5-14.5); RDW Standard Deviation 47.7 fL (36.4-46.3); Red Blood Count 3.71 M/uL (4.20-5.40); White Blood Count 10.56 K/ul (4.8-10.8)
[2023-05-27 06:48] LABS: BUN Creatinine Ratio 40.9 (10-20); Calcium 9.3 mg/dl (8.6-10.3); Creatinine Clr Calc Pharmacy 39.5 ml/min; Est GFR (African American) 69.4 ml/min; Est GFR (Non-African American) 59.9 ml/min; Potassium 4.1 mmol/L (3.5-5.1)
[2023-05-27] MEDS ORDERED: FORMOTEROL 20 MCG/2 ML VIAL NEB SCH (07:00)
[2023-05-27] MEDS: amLODIPine BESYLATE 5 MG TAB PO SCH (07:28)
[2023-05-27] MEDS: OXcarbazepine 150 MG TABLET PO SCH (07:28)
[2023-05-27] MEDS: guaiFENesin 600 MG TABCR PO SCH (07:28)
[2023-05-27] MEDS: ENOXAPARIN INJ 40 MG/0.4 ML SYR SQ SCH (07:29)
[2023-05-27 07:44] LABS: Basophils # (auto) 0.01 K/uL (0-0.2); Basophils % (auto) 0.1 %; Immature Granulocytes # (auto) 0.06 K/uL (0.01-0.20); Immature Granulocytes % (auto) 0.6 %; Lymphocytes # (auto) 0.58 K/uL (1.2-3.4); Lymphocytes % (auto) 5.5 %; Monocytes # (auto) 0.37 K/uL (0.11-0.59); Monocytes % (auto) 3.5 %; Neutrophils # (auto) 9.54 K/uL (1.40-6.50); Neutrophils % (auto) 90.3 %
[2023-05-27] MEDS: BUDESONIDE 0.5 MG/2 ML VIAL (PULMICORT) NEB SCH (07:56)
[2023-05-27] MEDS: INSULIN ASPART PER UNIT CHARGE SC SCH ×2 (08:44→12:47)
[2023-05-27] MEDS ORDERED: AZITHROMYCIN 250 MG TAB PO SCH (09:00)
--- NOTE | 2023-05-27 15:14 | Discharge Summary ---
Date of Service May 27, 2023 Admission HPI Per Admitting Provider 87 yo female with PMHx CVA, HTN, dementia, and end stage COPD presents with shortness of breath and confusion. When seen at bedside patient was on BiPAP and arrived confused. History noted from her daughter and son-in-law who are present. Over the past few days patient has had progressive worsening shortness of breath, generalized weakness, and confusion. This is her first time at [facility] as she follows with Wilber Marmolejo. She does have about 1-2 episodes of COPD exacerbation a year. At home she is on 2-2.5 L of continuous oxygen supplementation. Principal Diagnosis Acute on chronic hypercapnic hypoxia respiratory failure AECOPD Pneumonia Elevated troponin secondary to demand ischemia Discharge Exam GENERAL: 87 yo well-developed, well-nourished elderly F. Appears chronically ill. AAOx2. NAD. LUNGS: Nonlabored. Decreased air movement. No wheezes or rhonchi noted on today's exam. CARDIOVASCULAR: Regular rate and rhythm. ABDOMEN: Soft, non-tender and non-distended. BS normoactive x 4 quad. EXTREMITIES: Trace edema in RLE, no edema in LLE. Non-tender. Peripheral pulses +2/4. Discharge Data Allergies Allergy/AdvReac Type Severity Reaction Status Date / Time cefuroxime [From Ceftin] Allergy Hives Verified 05/26/23 00:54 Consultations 05/26/23 01:19 ED Decision to Admit Stat Ordered Studies Chest X-Ray 05/25/23 23:26 XR chest 1V portable CLINICAL HISTORY: Dyspnea TECHNIQUE: Single frontal radiograph of the chest was obtained. Comparison: None available at the time of this dictation. FINDINGS: No lines and tubes are seen. Calcified aortic knob is seen. Faint bibasilar airspace opacities are seen. Interstitial thickening is seen. No evidence of pleural effusion or pneumothorax. IMPRESSION: Faint bibasilar airspace opacities which may represent atelectasis, pneumonia, and/or aspiration. 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 ACT 112: Negative or not required by law. Electronically signed by: Harsha Gale M.D. 05/26/2023 7:36 AM Hospital Course (1) Acute on chronic respiratory failure with hypoxia and hypercapnia: Acute/unstable - high risk - End stage COPD with chronic respiratory failure, wears 2-2.5L at home continuously - Follows with Wilber Marmolejo - ARF with hypercapnia and hypoxia (pH 7.32, pCO2 56, pO2 84) - this was POC ?arterial blood gas, unsure what type of O2 supplementation was being provided at time of collection - pt's baseline uncertain - No further needs for BiPAP - Continue supplemental O2 only as able to maintain a goal pulse ox 88-92% - I did consumer credit counselor her daughter on this during our conversation on 05/26 and she verbalized understanding (2) Acute exacerbation of chronic obstructive pulmonary disease: Acute/unstable - moderate risk - Continue Duonebs QIDR and q2 prn - Given 1 dose of Solumedrol in ED only - Add Solumedrol 40mg IV q8 - Chronically on Prednisone 5mg daily - Transition to Prednisone to start on 05/28 and taper back to her regular dose - Stop Breo, order nebulized Budesonide + Formoterol BID while in house - She can resume Breo upon d/c (3) Acute alteration in mental status: Acute/stable - resolved - Suspect metabolic encephalopathy secondary to worsening hypoxia (O2 88% reportedly on her chronic 2L) - Known underlying h/o dementia but pt's family feels that she has returned to her baseline mentation (4) Pneumonia: Acute/unstable - moderate risk - Clinically supported by leukocytosis and acute on chronic respiratory failure - CXR with bibasilar airspace opacities - Given Levaquin 750mg IV x1 in ED and appears admitting changed to Zithromax - CBC reviewed, leukocytosis has improved from 20 down to 11 this morning - Stopped Zithromax on 05/26 and reordered Levaquin 750mg IV q48, last dose on 05/27 will be due for next dose on 05/28 - This is preferred over single agent zithromax to provide adequate gram negative + atypical coverage - QTc WNL at 430 - Breathing treatments as above - Continue Mucinex 600mg BID which could be purchased OTC (5) Elevated troponin: Acute/stable - HS trop elevated at 29 on admit - Serial HS trops ordered, repeat 41 and then back down to 35 this AM - Slight elevation likely represents myocardial demand ischemia d/t acute medical problems - She remains CP free, EKG w/o acute changes (6) Dementia: Chronic/stable - Currently oriented x2 - Does not appear to be on any dementia medications (7) Hypertension: Chronic/stable - On Norvasc 10mg daily at home, BP has been running soft on this - Will discontinue Norvasc, follow BPs at home and f/u with PCP (8) Type 2 diabetes mellitus: Chronic/stable - Take Metformin monotherapy at home 500mg BID - Metformin placed on hold, transition to lantus/log regimen - Continue accuchecks AC and HS - Carb consistent diet - Can resume Metformin upon d/c, CrCl 48 Plan Patient has seemingly returned to her baseline per conversations with family. She has 20/06 care with her daughter and son-in-law and also has in home caregivers. Did not do great with therapy today but per family, seems to have limited mobility and just transfers. I believe patient would be a perfect candidate for hospice given her dementia, deconditioning, and advanced copd. Attempted to call and speak with daughter, Lilliam, today but she was not available due to work. I did speak with her son-in-law Willie and he verbalized understanding regarding our hospice discussion and stated that they had actually been discussing this. Hospice could be facilitated by her PCP and I have encouraged that they speak with him about this at her follow up appointment. Given she has returned to her baseline mentation/O2 requirements and remains hemodynamically stable, will plan for discharge home in care of her family and caregivers. Plan has been d/w Dr. Rod who is in agreement. Total Time Total Time Spent Total Time Spent (In Minutes): 40 minutes Discharge Plan Discharge Items Patient Disposition: Home - Home Health Services Reason For Visit: SHORTNESS OF BREATH, CONFUSION Discharge Diagnosis: pneumonia low oxygen copd Activity: Resume your previous activity Non-emergency contact: Primary Care Provider Call non-emergency contact if: you have any medication questions Follow-up/Referrals: Kendell Harmon, ChayitoONicci [Primary Care Provider] - Diet: Carb Consistent or DM2 Addtl Attending Provider Instructions: You were hospitalized due to worsening oxygen levels, confusion caused by pneumonia and your advanced chronic lung disease. You were treated with breathing treatments, steroids, and antibiotics and have responded well. At this time, it is felt that you have returned to your baseline and you will be transitioned to oral antibiotics and steroids. You will be due for your next dose of antibiotics (Levaquin) on 05/28. You will take it every OTHER day until it is gone. Therefore, your doses will be due on 05/28, 05/30, and 06/01. You are also being placed on steroids. Please take these in the morning with food. Please take them as directed. You will hold your normal Prednisone 5mg dose until you are DONE with the taper that has been sent to the pharmacy. Your blood pressure has been running low during your stay. Therefore, your blood pressure medication (Amlodipine) has been discontinued. Given your advanced lung disease, you would be a perfect candidate for additional support with hospice services. This could be discussed with your family doctor who could facilitate this. It is recommended that you follow up with your primary care provider within 1 week of discharge or sooner if needed. If you have any questions or concerns after you leave the hospital, please call the nonemergency contact number listed on your discharge paperwork. In the event of a medical emergency, call 911. Pending Studies at Discharge: No Stand-Alone Forms: My [employer], Smoking Cessation Medications and DC Order Prescriptions: New prednisone 10 mg tablet 10 mg PO DAILY Qty: 20 0RF Rx Instructions: 4 tabs po daily x 2 dsys, 3 tabs po daily x 2 days, 2 tabs po daily x 2 days, 1 tab po daily x 2 days then resume regular dose levofloxacin 750 mg tablet 750 mg PO Q48H Qty: 3 0RF Rx Instructions: take 05/28, 05/30 and 06/01 Continued oxcarbazepine 150 mg tablet 300 mg PO BID clopidogrel 75 mg tablet 75 mg PO HS metformin 500 mg tablet 500 mg PO BID albuterol sulfate 2.5 mg /3 mL (0.083 %) Solution For Nebulization 2.5 mg INHALATION Q4H PRN (Reason: Shortness Of Breath Or Wheezing) cholecalciferol (vitamin D3) [Vitamin D3] 25 mcg (1,000 unit) Tablet 25 mcg PO QAM fentanyl 12 mcg/hr patch 72 hour 12 mcg transdermal [id number] Held prednisone 5 mg tablet 5 mg PO QAM Hold Instructions: Resume on 06/05/23. Discontinued amlodipine 10 mg tablet 10 mg PO QAM Discharge Orders: Discharge Order (Routine); Ordered 05/27/23 Ordered By: Aimee Nava/Other Patient Handouts: COPD Diabetes, Healthy Meals for Diabetes, Di abetes Inspect Feet Admission Data Admit Date/Time: 05/26/23 03:28 Attending Provider: Axel Rod Admit Provider: Eugene Cotto Primary Care Provider: Kendell Harmon Other Providers: Ana Paz Other Interventions: Discharge Summary Assessment (RN) Last Done: 05/27/23 15:30 Supervising Physician Co-Signing Physician Notes The patient was not seen by me. The chart was reviewed. Case discussed with LOR Pittman. Agree with assessment and plan. She will be discharged home. Coding Level of Care Code 47848 INP/OBS DISCH >30 MIN Diagnoses Acute on chronic respiratory failure with hypoxia and hypercapnia J96.21; J96.22 Acute exacerbation of chronic obstructive pulmonary disease J44.1 Acute alteration in mental status R41.82 Pneumonia J18.9 Elevated troponin R77.8 Dementia F03.90 Hypertension I10 Type 2 diabetes mellitus E11.9
[2023-05-28] MEDS ORDERED: levoFLOXacin/D5W 750 MG/150 ML BAG IV SCH (09:00)
== END 2023-05-27 18:18 | disposition home health service (06) | DRG 871 ==
LOC: ED 22:54 → 4W 05-26 03:28 → SUATTDRO 05-26 03:28 → 4W 05-26 04:27